=== PATIENT | male | born 1970 ===

== ENCOUNTER 2021-08-25 12:25 | Emergency (ER) | payer BC ==
--- NOTE | 2021-08-25 13:33 | XRay Report ---
RIGHT LITTLE FINGER 3 VIEWS INDICATION / CLINICAL INFORMATION: Injury of right little finger after crush injury. COMPARISON: None available. FINDINGS: BONES and JOINT(S): There is an acute nondisplaced oblique fracture through the distal half of the di stal phalanx of the little finger. No dislocation. 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 No other significant degenerative changes. SOFT TISSUES: Moderate generalized edema is seen along the little finger with a laceration noted dors ally centered over the DIP joint and measuring up to 2.4 cm. No other significant abnormality. ADDITIONAL FINDINGS: None. IMPRESSION: 1. Acute fracture of the right little finger as above. Signer Name: Chandler Douglas MD Signed: 08/25/2021 1:29 PM Workstation Name: [id number]
[2021-08-25] MEDS ORDERED: TETANUS,DIPH,PERTUSS(ACELL) VACCINE 0.5 ML SYRINGE IM ONE (14:03)
[2021-08-25] MEDS ORDERED: ACETAMINOPHEN W/CODEINE 300-30 MG TAB PO ONE (14:04)
[2021-08-25] MEDS ORDERED: LIDOCAINE-MPF (1%) 10 MG/1 ML VIAL 5 ML INFILTRATI ONE (14:04)
[2021-08-25] MEDS ORDERED: ceFAZolin 1 GM VIAL IM ONE (15:04)
--- NOTE | 2021-08-25 15:04 | Emergency Department Report ---
ED Upper Extremity Inj HPI - General Chief Complaint: Laceration/Recheck/Suture Stated Complaint: FINGER LAC Time Seen by Provider: 08/25/21 12:37 Source: patient Mode of arrival: Ambulatory Limitations: No Limitations - History of Present Illness Initial Comments: 51-year-old male presents to the emergency department for evaluation of right finger injury. He states that he was closing the door of the back of his tractor trailer, and his finger got slammed in the door. He presents with wound and pain to the area. MD Complaint: Injury to:: right, finger -: Sudden Other Extremity Injury: Fingers: Right Other Injuries: none Place: work Severity scale (0 -10): 6 Worsens With: movement of extremity Context: crush Associated Symptoms: denies other symptoms - Related Data Previous Rx's Medication Instructions Recorded Last Taken Type Acetaminophen/Codeine [Tylenol 1 tab PO Q6H PRN #21 tab 08/25/21 Unknown Rx /Codeine # 3 tab] cephALEXin [Keflex] 500 mg PO Q12HR #14 cap 08/25/21 Unknown Rx Allergies Allergy/AdvReac Type Severity Reaction Status Date / Time No Known Allergies Allergy Verified 08/25/21 12:27 ED Review of Systems ROS: Stated complaint: FINGER LAC Other details as noted in HPI Comment: All other systems reviewed and negative Constitutional: denies: fever Respiratory: denies: shortness of breath Cardiovascular: denies: chest pain, palpitations Gastrointestinal: denies: abdominal pain, nausea, vomiting Skin: denies: rash Neurological: denies: headache ED Past Medical Hx - Medications Home Medications: Home Medications Medication Instructions Recorded Confirmed Last Taken Type Acetaminophen/Codeine [Tylenol 1 tab PO Q6H PRN #21 tab 08/25/21 Unknown Rx /Codeine # 3 tab] cephALEXin [Keflex] 500 mg PO Q12HR #14 cap 08/25/21 Unknown Rx ED Physical Exam - General Limitations: No Limitations General appearance: alert, in no apparent distress - Head Head exam: Present: atraumatic, normocephalic - Eye Eye exam: Present: normal appearance. Absent: conjunctival injection - Neck Neck exam: Present: normal inspection - Respiratory Respiratory exam: Absent: respiratory distress - Cardiovascular Cardiovascular Exam: Present: regular rate - GI/Abdominal GI/Abdominal exam: Absent: distended - Expanded Upper Extremity Exam Right Hand Wrist exam: Present: tenderness, swelling, laceration (Right fifth finger). Absent: normal inspection, nail avulsion, subungual hematoma Hand L/R Back: 1 - Laceration minimal bleeding noted Vascular: Present: normal capillary refill, radial pulse. Absent: vascular compromise, Pallo, pulse deficit radial art - Back Exam Back exam: Present: normal inspection - Neurological Exam Neurological exam: Present: alert, oriented X3 - Psychiatric Psychiatric exam: Present: normal affect, normal mood - Skin Skin exam: Present: warm, dry, intact, normal color ED Course Vital Signs 08/25/21 08/25/21 12:30 15:24 Temperature 98.7 F 98.1 F Pulse Rate 71 69 Respiratory 18 20 Rate Blood Pressure 125/80 Blood Pressure 129/83 [Right] O2 Sat by Pulse 98 99 Oximetry - Laceration /Wound Repair Right Finger Wound Location: upper extremity (Right fifth finger) Wound Length (cm): 3 Wound's Depth, Shape: superficial, irregular Wound Explored: clean Irrigated w/ Saline (ccs): 70 Betadine Prep?: No Anesthesia: 1% Lidocaine Volume Anesthetic (ccs): 3 Wound Repaired With: sutures Suture Size/Type: 5:0, proline Number of Sutures: 5 Layer Closure?: No Sterile Dressing Applied?: Yes Progress: Tolerated well. ED Medical Decision Making - Radiology Data Radiology results: report reviewed, image reviewed Right finger x-ray: FINDINGS: BONES and JOINT(S): There is an acute nondisplaced oblique fracture through the distal half of the distal phalanx of the little finger. No dislocation. 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 No other significant degenerative changes. SOFT TISSUES: Moderate generalized edema is seen along the little finger with a laceration noted dorsally centered over the DIP joint and measuring up to 2.4 cm. No other significant abnormality. ADDITIONAL FINDINGS: None. IMPRESSION: 1. Acute fracture of the right little finger as above. - Medical Decision Making 51-year-old male presents to the emergency department for evaluation of right finger injury. He states that he was closing the door of the back of his tractor trailer, and his finger got slammed in the door. He presents with wound and pain to the area. Right fifth finger laceration, and x-ray positive for nondisplaced fracture of distal pharynx. Patient will be treated for open fracture. Laceration repaired with sutures per procedure note, Tdap updated, patient given 1 g of Ancef IM, aluminum splint placed to finger, and patient discharged home with 7-day course of Keflex along with Tylenol 3 as needed for pain. He is advised to take medications as prescribed and follow-up with orthopedics if no improvement or worsening symptoms. He verbalized understanding of and agreement with plan of care. Critical care attestation.: If time is entered above; I have spent that time in minutes in the direct care of this critically ill patient, excluding procedure time. ED Disposition Clinical Impression: Finger fracture, right Qualifiers: Encounter type: initial encounter Finger: little finger Fracture type: open Phalanx: distal Fracture alignment: nondisplaced Qualified Code(s): S62.666B - Nondisplaced fracture of distal phalanx of right little finger, initial encounter for open fracture Finger laceration Qualifiers: Encounter type: initial encounter Finger: little finger Damage to nail status: without damage Foreign body presence: without foreign body Laterality: right Qualified Code(s): S61.216A - Laceration without foreign body of right little f susana without damage to nail, initial encounter Disposition: 01 HOME / SELF CARE / HOMELESS Is pt being admited?: No Does the pt Need Aspirin: No Condition: Stable Instructions: Finger Fracture, Adult, [id number], Cast or Splint Care, Adult, [id number], Laceration Care, Adult, [id number], Sutured Wound Care, [id number] Additional Instructions: Take medications as prescribed. Return here or to PCP in 7-10 days for suture removal. Monitor for signs of infection and return it ed immediately if any noted. Prescriptions: cephALEXin [Keflex] 500 mg PO Q12HR #14 cap Acetaminophen/Codeine [Tylenol /Codeine # 3 tab] 1 tab PO Q6H PRN #21 tab PRN Reason: Pain, Moderate (4-6) Referrals: Cecelia Medrano [Other] - 3-5 Days Time of Disposition: 15:08
[2021-08-25 15:35] VITALS: BP 129/83
== END 2021-08-25 15:24 | disposition home or self-care (01) ==
LOC: ED 12:25
DX: S61.216A Laceration without foreign body of right little finger without damage to nail, initial encounter (principal); S62.666A Nondisplaced fracture of distal phalanx of right little finger, initial encounter for closed fracture; W23.0XXA Caught, crushed, jammed, or pinched between moving objects, initial encounter; Y93.89 Activity, other specified; Y92.89 Other specified places as the place of occurrence of the external cause; Y99.8 Other external cause status
CPT/HCPCS: 12002; 73140; 90471; 90715; 96372; 99283; J0690; J3490